=== PATIENT | male | born 1960 | race Caucasian/White ===

== ENCOUNTER 2018-02-21 15:28 | Emergency (ER) | payer OTHER ==
[~2018-02-21] VITALS: Ht 175.3 cm; Wt 100.0 kg
[~2018-02-21 15:28] MED LIST: CITA40TA5 PO; CLON-364 PO; GABA300C10 PO; HYDR-3237 PO; LANS15TA6 PO; LISI5TAB7 PO; METH750T87 PO; NAPR220C2 PO
[2018-02-21 15:30] VITALS: BP 146/98
[2018-02-21] MEDS ORDERED: IBUPROFEN 200 MG TABLET ONE (16:41)
[2018-02-21] MEDS ORDERED: NAPROXEN 500 MG TABLET ONE (16:59)
[2018-02-21] MEDS ORDERED: NAPROXEN 500 MG TABLET PO ONE (17:00)
== END 2018-02-21 17:12 | disposition home or self-care (01) ==
LOC: ED 17:06
DX: S16.1XXA Strain of muscle, fascia and tendon at neck level, initial encounter (principal); S00.33XA Contusion of nose, initial encounter; S00.83XA Contusion of other part of head, initial encounter; M54.9 Dorsalgia, unspecified; I10 Essential (primary) hypertension; F41.1 Generalized anxiety disorder; Z88.8 Allergy status to other drugs, medicaments and biological substances; W22.03XA Walked into furniture, initial encounter; Y93.89 Activity, other specified; Y92.89 Other specified places as the place of occurrence of the external cause; Y99.8 Other external cause status
CPT/HCPCS: 70450; 70486; 72125; 99284